=== PATIENT | female | born 1975 | race Two or more races ===

== ENCOUNTER 2017-04-02 12:08 | Outpatient (CLI) | payer OTHER | END 2017-04-02 12:21 | disposition home or self-care (01) | LOC: LAB 12:08 | DX: O00.101 Right tubal pregnancy without intrauterine pregnancy (principal) ==

== ENCOUNTER 2017-04-02 12:44 | Outpatient (CLI) | payer OTHER | END 2017-04-02 13:03 | disposition home or self-care (01) | LOC: SONOGRAMA 12:44 | DX: R10.2 Pelvic and perineal pain (principal) ==

== ENCOUNTER 2017-04-06 09:54 | Outpatient (CLI) | payer OTHER | END 2017-04-06 10:07 | disposition home or self-care (01) | LOC: LAB 09:54 | DX: O00.101 Right tubal pregnancy without intrauterine pregnancy (principal); O02.1 Missed abortion ==

== ENCOUNTER 2017-04-17 07:45 | Outpatient (CLI) | payer OTHER | END 2017-04-17 07:55 | disposition home or self-care (01) | LOC: LAB 07:45 | DX: O00.101 Right tubal pregnancy without intrauterine pregnancy (principal) ==

== ENCOUNTER 2017-04-23 11:12 | Outpatient (CLI) | payer OTHER | END 2017-04-23 11:24 | disposition home or self-care (01) | LOC: LAB 11:12 | DX: O00.101 Right tubal pregnancy without intrauterine pregnancy (principal) ==